=== PATIENT | male | born 1950 | race Caucasian/White ===

== ENCOUNTER 2017-12-04 15:47 | Emergency (ER) | payer SELFPAY ==
[2017-12-04] MEDS ORDERED: SODIUM CHLORIDE 0.9% FLUSH 10 ML SOL IV PRN (16:01)
[2017-12-04] MEDS ORDERED: NITROGLYCERIN 0.4 MG TAB SL PRN (16:01)
[2017-12-04] MEDS ORDERED: MORPHINE SULFATE 10 MG/ML SOL IV PRN (16:01)
[2017-12-04] MEDS ORDERED: SODIUM CHLORIDE 0.9% 500 ML 500 ML IV ONE (16:03)
[2017-12-04 16:19] VITALS: TEMP 98
[2017-12-04 16:22] LABS: BASOPHILS % (AUTO) 2 % (0-3); EOSINOPHILS % (AUTO) 2 % (0-9); HEMATOCRIT 31 % (39-53); HEMOGLOBIN 10.2 gm/dl (13.5-17.7); LYMPHOCYTES % (AUTO) 11.3 % (10-50); MEAN CORPUSCULAR HGB CONC 32.7 gm/dl (32.0-36.0); MONOCYTES % (AUTO) 13.7 % (0-12); NEUTROPHILS % (AUTO) 71.5 % (37-80)
[2017-12-04 16:23] LABS: MEAN CORPUSCULAR VOLUME 104 fL (80-100)
[2017-12-04 16:32] LABS: INR 1.5 (0.86-1.12)
[2017-12-04 16:37] LABS: ALBUMIN 2.7 gm/dl (3.4-5.0); ALKALINE PHOSPHATASE 141 IU/L (46-116); ALT 32 IU/L (14-63); AST 48 IU/L (15-37); BILIRUBIN,TOTAL 7.6 mg/dl (0.2-1.0); BLOOD UREA NITROGEN 17 mg/dl (7-18); CALCIUM 8.8 mg/dl (8.5-10.1); CHLORIDE 107 mMol/L (98-107); CREATINE KINASE 57 U/L (39-308); CREATININE 1.28 mg/dl (0.80-1.30); GLOM FILT RATE 56 mL/min (>60); GLUCOSE 114 mg/dl (74-106); POTASSIUM 3.3 mMol/L (3.5-5.1); SODIUM 141 mMol/L (136-145); TOTAL PROTEIN 5.6 gm/dl (6.4-8.2); TROP I < 0.017 ng/ml (0.000-0.056)
[2017-12-04] MEDS ORDERED: MORPHINE SULFATE 10 MG/ML SOL ONE (16:42)
[2017-12-04 17:28] VITALS: O2SAT 100
[2017-12-04 18:30] VITALS: BP 114/72; PULSE 72; RESP 12
== END 2017-12-04 19:05 | disposition home or self-care (01) | DRG 313 ==
LOC: ED 15:47
DX: R07.2 Precordial pain (principal); R41.0 Disorientation, unspecified
CPT/HCPCS: 36415; 71045; 80053; 82550; 83880; 84484; 85025; 85610; 85730; 93005; 96365; 96374; 99284; 99285; J2270

== ENCOUNTER 2017-12-28 13:53 | Emergency (ER) | payer MEDICARE, OTHER ==
[2017-12-28 14:04] VITALS: RESP 18; TEMP 97.9
[2017-12-28 15:03] LABS: BILIRUBIN,TOTAL 9.1 mg/dl (0.2-1.0); CALCIUM 9.1 mg/dl (8.5-10.1); CARBON DIOXIDE 23.7 mEq/L (21-32); CREATININE 1.46 mg/dl (0.80-1.30); TOTAL PROTEIN 6.3 gm/dl (6.4-8.2)
[2017-12-28 15:05] LABS: POTASSIUM 2.9 mMol/L (3.5-5.1)
[2017-12-28] MEDS ORDERED: POTASSIUM CHLORIDE 10 MEQ TER PO ONE (15:08)
[2017-12-28 15:11] LABS: BASOPHILS % (AUTO) 2 % (0-3); EOSINOPHILS % (AUTO) 1 % (0-9); HEMATOCRIT 32 % (39-53); HEMOGLOBIN 11.3 gm/dl (13.5-17.7); LYMPHOCYTES % (AUTO) 9.44 % (10-50); MEAN CORPUSCULAR HEMOGLOBIN 33.8 pg (27.0-32.0); MEAN CORPUSCULAR HGB CONC 34.9 gm/dl (32.0-36.0); MEAN CORPUSCULAR VOLUME 97 fL (80-100); NEUTROPHILS % (AUTO) 79.3 % (37-80)
[2017-12-28] MEDS ORDERED: POTASSIUM CHLORIDE 10 MEQ TER ONE (15:14)
[2017-12-28 17:34] VITALS: BP 120/78; PULSE 85; O2SAT 96
== END 2017-12-28 17:35 | DRG 434 ==
LOC: ED 13:53
DX: K70.31 Alcoholic cirrhosis of liver with ascites (principal); R11.2 Nausea with vomiting, unspecified; E87.6 Hypokalemia
CPT/HCPCS: 36415; 80053; 85025; 99283; 99284; A9270-GY

== ENCOUNTER 2018-01-13 10:27 | Emergency (ER) | payer MEDICARE, OTHER ==
[2018-01-13 10:36] VITALS: TEMP 97.4
[2018-01-13 11:40] LABS: BASOPHILS % (AUTO) 1 % (0-3); EOSINOPHILS % (AUTO) 0 % (0-9); HEMATOCRIT 33 % (39-53); HEMOGLOBIN 10.7 gm/dl (13.5-17.7); LYMPHOCYTES % (AUTO) 8.243 % (10-50); MEAN CORPUSCULAR HEMOGLOBIN 33.3 pg (27.0-32.0); MONOCYTES % (AUTO) 8.3 % (0-12); NEUTROPHILS % (AUTO) 82.5 % (37-80)
[2018-01-13 11:43] LABS: MEAN CORPUSCULAR VOLUME 104 fL (80-100)
[2018-01-13 11:51] LABS: ALBUMIN 2.8 gm/dl (3.4-5.0); BILIRUBIN,TOTAL 11.2 mg/dl (0.2-1.0); CALCIUM 8.8 mg/dl (8.5-10.1); CARBON DIOXIDE 21.7 mEq/L (21-32); CREATININE 1.35 mg/dl (0.80-1.30); POTASSIUM 4.2 mMol/L (3.5-5.1); TOTAL PROTEIN 6.3 gm/dl (6.4-8.2)
[2018-01-13 14:17] VITALS: O2SAT 96
[2018-01-13 14:18] VITALS: PULSE 89; RESP 18
[2018-01-13 14:19] VITALS: BP 120/73
== END 2018-01-13 13:12 | DRG 605 ==
LOC: ED 10:27
DX: S20.212A Contusion of left front wall of thorax, initial encounter (principal)
CPT/HCPCS: 36415; 71101; 80053; 85025; 99283; 99284

== ENCOUNTER 2018-02-25 14:24 | Emergency (ER) | payer MEDICARE, MEDICAID ==
[2018-02-25 14:40] VITALS: RESP 20; TEMP 97.4; O2SAT 100
[2018-02-25] MEDS ORDERED: OXYCODONE HYDROCHLORIDE 5 MG TAB PO ONE (15:42)
[2018-02-25] MEDS ORDERED: OXYCODONE HYDROCHLORIDE 5 MG TAB ONE (15:45)
[2018-02-25 18:05] VITALS: BP 92/64; PULSE 92
== END 2018-02-25 17:27 | DRG 604 ==
LOC: ED 14:24
DX: S00.03XA Contusion of scalp, initial encounter (principal); I63.9 Cerebral infarction, unspecified; W19.XXXA Unspecified fall, initial encounter; R61 Generalized hyperhidrosis; R40.2362 Coma scale, best motor response, obeys commands, at arrival to emergency department; R40.2142 Coma scale, eyes open, spontaneous, at arrival to emergency department; R40.2252 Coma scale, best verbal response, oriented, at arrival to emergency department; J44.9 Chronic obstructive pulmonary disease, unspecified
CPT/HCPCS: 70450; 72125; 99283; L0130; A6232; A9270-GY